=== PATIENT | female | born 1990 | race Caucasian/White ===

== ENCOUNTER 2021-01-02 17:28 | Outpatient (CLI) | payer OTHER, SELFPAY ==
[2021-01-06 11:30] LABS: Vitamin D 1,25 (OH)2 Total 43 pg/mL (18-72); Vitamin D2 1,25 (OH)2 <8 pg/mL; Vitamin D3 1,25 (OH)2 43 pg/mL
== END 2021-01-02 17:29 | disposition home or self-care (01) ==
LOC: CHSLAB 17:30
PROVIDERS: PCP Family Medicine Adolescent Medicine; Visit Provider Nurse Practitioner
DX: E55.9 Vitamin D deficiency, unspecified (principal)
CPT/HCPCS: 36415; 82652

== ENCOUNTER 2021-03-13 14:20 | Outpatient (CLI) | payer OTHER, SELFPAY ==
[2021-03-13 14:31] LABS: Basophils Absolute Auto 0.06 K/mm3 (0.00-0.10); Basophils Percent Auto 0.8 % (0.0-1.0); Eosinophils Absolute Auto 0.12 K/mm3 (0.02-0.50); Eosinophils Percent Auto 1.6 % (1.0-6.0); Hematocrit 41.5 % (35.0-49.0); Hemoglobin 14.6 g/dL (12.0-15.0); Immature Granulocyte Absolute 0.02 K/mm3 (0.00-0.00); Immature Granulocyte Percent A 0.3 % (0.0-0.0); Lymphocytes Absolute Auto 3.23 K/mm3 (1.10-4.50); Lymphocytes Percent Auto 44.2 % (18.0-42.0); Mean Corpuscular HGB Conc 35.2 g/dL (32.0-36.0); Mean Corpuscular Hemoglobin 30.7 pg (27.0-31.0); Mean Corpuscular Volume 87.2 fL (78.0-102.0); Mean Platelet Volume 8.9 fl (9.2-11.8); Monocytes Absolute Auto 0.33 K/mm3 (0.10-0.90); Monocytes Percent Auto 4.5 % (2.0-11.0); Neutrophils Absolute Auto 3.5 K/mm3 (1.7-7.2); Neutrophils Percent Auto 48.6 % (50.0-70.0); Platelet Count Result 292 K/mm3 (150-420); Red Blood Count 4.76 M/mm3 (4.20-5.40); Red Cell Distribution Width 12.2 % (11.6-14.4); White Blood Count 7.3 K/mm3 (4.8-10.8)
[2021-03-13 15:30] LABS: Alanine Aminotransferase 47 U/L (14-59); Albumin Level 4.2 g/dL (3.4-5.0); Alkaline Phosphatase 75 U/L (46-116); Anion Gap 11 mmol/L (8-16); Aspartate Amino Transferase 18 U/L (15-37); Bilirubin,Total 0.5 mg/dL (0.00-1.00); Blood Urea Nitrogen 12 mg/dL (7-18); Calcium 9.1 mg/dL (8.5-10.1); Carbon Dioxide 27 mmol/L (21-32); Chloride 102 mmol/L (98-108); Estimated Glomerular Filt Rate > 60; Glucose 108 mg/dL (70-99); Osmolality Calculated 290 mOsm/kg (285-295); Potassium 3.5 mmol/L (3.5-5.1); Sodium 140 mmol/L (136-145); Thyroid Stimulating Hormone 4.58 uIU/mL (0.36-3.74); Total Protein 7.9 g/dL (6.4-8.2)
== END 2021-03-13 14:21 | disposition home or self-care (01) ==
LOC: CHSLAB 14:22
PROVIDERS: PCP Family Medicine Adolescent Medicine; Visit Provider Physician Assistant
DX: R53.83 Other fatigue (principal)
CPT/HCPCS: 36415; 80053; 84443; 85025

== ENCOUNTER 2021-05-31 12:18 | Outpatient (CLI) | payer OTHER, SELFPAY ==
[2021-05-31 13:42] LABS: Thyroid Stimulating Hormone 1.74 uIU/mL (0.36-3.74)
== END 2021-05-31 12:19 | disposition home or self-care (01) ==
LOC: CHSLAB 12:21
PROVIDERS: PCP Family Medicine Adolescent Medicine; Visit Provider Family Medicine Adolescent Medicine
DX: E03.9 Hypothyroidism, unspecified (principal)
CPT/HCPCS: 36415; 84443

== ENCOUNTER 2022-09-16 09:25 | Outpatient (CLI) | payer OTHER, SELFPAY ==
--- NOTE | 2022-09-27 18:31 | WPDHOMESLEEP ---
Sleep Study - Home Unattended Date of Study: 09/16/22 Ordering Provider: Ritika Cruz PA-C Interpreting Provider: Jami Louis, DO Home Sleep Study Type: Apnea Link Air Height: 1.5 m Weight: 70.76 kg Body Mass Index: 31.5 Neck Circumference (inches): 14 Daisy: 10 Reason for Sleep Study Witnessed apneas, daytime hypersomnia Sleep History The patient is a 32-year-old female with hypothyroidism and anxiety that had a sleep study ordered by primary care for evaluation of sleep apnea. The patient occasionally awakens from sleep short of breath. She denies awakening at night with heartburn, belching or cough. She frequently snores loud enough that others complain. She occasionally has trouble sleeping she has a cold. She occasionally wakes up gasping for air throughout night. She constantly has breathing problems at night observed by herself or others. She occasionally sweats excessively at night. She denies having heart palpitations or irregular heartbeats during night. She occasionally falls asleep during the day but never while driving. She denies sleep paralysis, cataplexy and hypnagogic / hypnopompic hallucinations. She denies feeling afraid of going to sleep she denies having nightmares. She occasionally remembers her dreams. She occasionally has thoughts racing through her mind. She denies feeling sad or depressed. She occasionally has anxiety. She denies having muscular tension. She denies noticing parts of body. She occasionally kicks during the night. She denies having crawling and aching feelings in her legs and denies having leg pain during the night. She occasionally grinds her teeth during sleep but never awakens with morning jaw pain she is occasionally bothered by pain during the day but awakened by pain during night. She occasionally wakes up feeling stiff in morning. He occasionally wakes up with sore or achy muscles. She occasionally wakes up with pain in the neck, spine and other joints. She goes to bed at 9:00 p.m. on both weekdays and weekends. She is able to fall asleep fairly quickly. She wakes up once at most throughout the night to urinate. She is able to fall asleep immediately. She wakes up at 6:10 a.m. on weekdays and at 7:00 a.m. on the weekends. She typically gets 7-8 hours of sleep per night. The amount of time she spends in bed after waking up in the morning his variable. She currently lives with her boyfriend and 4 children. She does not consume any caffeinated beverages within 2 hours of bedtime she does not engage in physical exercise before bedtime. She will occasionally watch television before falling asleep. She will occasionally take naps in the afternoon or the evening but they are not refreshing. She drinks 3 cups of sweet tea per day. She denies tobacco, alcohol and recreational drug use. [facility] Family History Family History Mother Asthma Son Asthma Social History Social History Smoking status: Never smoker Second hand tobacco smoke exposure: No Alcohol intake: current Substance use: never Substance use type: does not use Gender identity (if verbalized by the patient): Female Spiritual care concerns: No Agree to blood products: Yes Medications Home Medications Medication Instructions Recorded Confirmed Type triamcinolone acetonide 0.1 % 1 applic topical BID #15 grams 05/12/22 06/18/22 Rx topical ointment mecobalamin (vitamin B12) 10,000 mcg subcut MONTHLY 06/18/22 06/18/22 History mcg solution for injection azithromycin 250 mg tablet See Rx Instructions PO .COMPLEX #6 08/05/22 Rx tabs alprazolam 0.5 mg tablet 0.5 mg PO TID PRN anxiety #30 tabs 08/13/22 Rx buspirone 10 mg tablet 10 mg PO BID #30 tabs 08/13/22 Rx levothyroxine 50 mcg tablet 50 mcg PO DAILY #30 tabs 08/20/22 Rx Sleep Procedure This
[2022-09-27 18:41] VITALS: BMI 31.5
== END 2022-09-17 10:34 | disposition home or self-care (01) ==
LOC: ANHCSM 09:31
PROVIDERS: PCP Family Medicine Adolescent Medicine; Visit Provider Physician Assistant
DX: G47.33 Obstructive sleep apnea (adult) (pediatric) (principal); E03.9 Hypothyroidism, unspecified; F41.9 Anxiety disorder, unspecified
CPT/HCPCS: 95806

== ENCOUNTER 2023-02-20 08:39 | Outpatient (CLI) | payer OTHER, SELFPAY ==
--- NOTE | 2023-02-20 11:00 | NEURO_ITS ---
Impression: Patient reports a history of difficulty picking up objects with her right hand. # Normal nerve conduction study of the right upper extremity. # Needle/EMG exam not requested. # Clinical correlation recommended. Nerve Conduction Studies Anti Sensory Summary Table Stim Site NR Peak (ms) P-T Amp (?V) Site1 Site2 Delta-P (ms) Dist (cm) Trevor (m/s) Right Median Anti Sensory (2-3nd Digit) Wrist 2.4 74.2 Wrist 2-3nd Digit 2.4 14.0 58 Wrist 2.5 84.9 Wrist 2-3nd Digit 2.4 14.0 58 Right Radial Anti Sensory (Base 1st Digit) Wrist 1.6 78.3 Wrist Base 1st Digit 1.6 0.0 Right Ulnar Anti Sensory (5th Digit) Wrist 2.3 64.1 Wrist 5th Digit 2.3 14.0 61 Motor Summary Table Stim Site NR Onset (ms) O-P Amp (mV) Site1 Site2 Delta-0 (ms) Dist (cm) Trevor (m/s) Right Median Motor (Abd Poll Brev) Wrist 2.3 6.4 Elbow Wrist 3.3 19.0 58 Elbow 5.6 5.7 Right Ulnar Motor (Abd Dig Minimi) Wrist 2.4 8.5 A Elbow Wrist 3.9 24.0 62 A Elbow 6.3 7.7 B Elbow Wrist 2.5 15.0 60 B Elbow 4.9 7.7 F Wave Studies NR F-Lat (ms) L-R F-Lat (ms) Right Median (Mrkrs) (Abd Poll Brev) 24.56 Right Ulnar (Mrkrs) (Abd Dig Min) 23.73 MTDD
== END 2023-02-20 08:40 | disposition home or self-care (01) ==
LOC: ANHNEURO 08:39
PROVIDERS: PCP Family Medicine Adolescent Medicine; Visit Provider Family Medicine Adolescent Medicine
DX: R20.0 Anesthesia of skin (principal)
CPT/HCPCS: 95909

== ENCOUNTER 2023-06-10 09:56 | Outpatient (CLI) | payer OTHER, SELFPAY ==
--- NOTE | ~2023-06-10 | XR_ITS ---
Clinical Indication: Dyspnea PA and lateral views of the chest: Comparison: None Findings: The lungs are clear, without evidence of focal consolidation or pleural effusion. Cardiome diastinal silhouette is within normal limits. Bones and soft tissues are unremarkable. Impression: Normal chest. Reviewed, dictated and finalized at location . Impression: Normal chest.
== END 2023-06-10 09:57 | disposition home or self-care (01) ==
LOC: ANHIMG 09:58
PROVIDERS: PCP Family Medicine Adolescent Medicine; Visit Provider Family Medicine Adolescent Medicine
DX: R06.00 Dyspnea, unspecified (principal)
CPT/HCPCS: 71046

== ENCOUNTER 2023-08-03 12:27 | Outpatient (CLI) | payer OTHER, SELFPAY ==
--- NOTE | 2023-08-03 14:06 | WPDPFTINT ---
PFT Procedure Performed PFT Procedure Performed Spirometry w/o Bronchodil PFT Interpretation Spirometry showed normal expiratory flow rates and a normal FEV1 to FVC ratio of 84%. No post bronchodilator study carried out. The flow-volume loop is unremarkable. Impression: Spirometry within normal range.
== END 2023-08-03 12:28 | disposition home or self-care (01) ==
LOC: ANHPFT 12:29
PROVIDERS: PCP Family Medicine Adolescent Medicine; Visit Provider Family Medicine Adolescent Medicine
DX: R06.00 Dyspnea, unspecified (principal)
CPT/HCPCS: 94375

== ENCOUNTER 2023-08-14 12:58 | Outpatient (CLI) | payer OTHER, SELFPAY ==
--- NOTE | ~2023-08-14 | MMUS_ITS ---
EXAMINATION: MM diagnostic grace BI w moshe, US breast LT limited HISTORY: Left breast pain TECHNIQUE: Craniocaudal, mediolateral, and mediolateral oblique 3-D tomosynthesis images of the breas ts were performed and synthetic 2-D images were generated. CAD analysis was submitted and interpreted . High resolution limited left breast ultrasound was performed. COMPARISON: None, baseline BREAST PARENCHYMAL COMPOSITION: The breasts are heterogeneously dense, which may obscure small masses . FINDINGS: MAMMOGRAPHIC FINDINGS: No suspicious mass, calcification, or architectural distortion are identified in either breast to sug gest malignancy. No mammographic correlate is identified for the patient's reported subareolar left b reast pain. ULTRASOUND: There is no evidence of focal abnormal solid or cystic mass in the vicinity of the patient's subareol ar left breast pain. There is a 7 mm x 4 mm oval, circumscribed, parallel, hypoechoic mass with no po sterior features or internal vascularity at the 5:00 location, 6 cm from the nipple in the left breas t. IMPRESSION: 1. No specific mammographic or sonographic correlate is identified for the patient's reported left br east pain. Further evaluation at this time should be based on clinical assessment. Continued follow-u p physical examination is recommended. 2. Recommend 6 month follow-up targeted left breast ultrasound for probably benign sonographically de tected mass at the 5:00 location, 6 cm from the nipple. BI-RADS category 3, probably benign findings. Reviewed, dictated and finalized at location A. ER AUTOMATIC IMPRESSION: 1. No specific mammographic or sonographic correlate is identified for the barbara ent's reported left breast pain. Further evaluation at this time should be base d on clinical assessment. Continued follow-up physical examination is recommend ed. 2. Recommend 6 month follow-up targeted left breast ultrasound for probably tasia ign sonographically detected mass at the 5:00 location, 6 cm from the nipple. BI-RADS category 3, probably benign findings.
== END 2023-08-14 12:59 | disposition home or self-care (01) ==
LOC: ANHIMG 13:00
PROVIDERS: PCP Family Medicine Adolescent Medicine; Visit Provider Nurse Practitioner
DX: N64.4 Mastodynia (principal)
CPT/HCPCS: 76642; 77062; 77066; G0279

== ENCOUNTER 2024-01-12 09:58 | Outpatient (CLI) | payer OTHER, SELFPAY ==
--- NOTE | ~2024-01-12 | US_ITS ---
US breast LT limited 01/12/2024 10:54 Indication: Follow-up left breast asymmetry Procedure: High-resolution Limited ultrasound of the left breast Comparison: Ultrasound dated 08/14/2023 Findings: At 5:00, 6 cm from the nipple there is an oval hypoechoic mass measuring approximately 5 mm with echogenic center, likely benign lymph node or complicated cyst. This is less apparent than on p rior examination, likely benign. Impression: 1: Probable benign left breast mass at 5:00, 6 cm from the nipple measuring 5 mm. BI-RADS CATEGORY 3-PROBABLY BENIGN FINDING RECOMMENDATION: Six-month follow-up bilateral mammogram and Limited left breast ultrasound recommende d. Reviewed, dictated and finalized at location A. Impression: 1: Probable benign left breast mass at 5:00, 6 cm from the nipple measuring 5 m m. BI-RADS CATEGORY 3-PROBABLY BENIGN FINDING RECOMMENDATION: Six-month follow-up bilateral mammogram and Limited left breast ultrasound recommended.
== END 2024-01-12 09:59 | disposition home or self-care (01) ==
PROVIDERS: PCP Family Medicine Adolescent Medicine; Visit Provider Obstetrics & Gynecology Gynecology
DX: N63.20 Unspecified lump in the left breast, unspecified quadrant (principal)
CPT/HCPCS: 76642

== ENCOUNTER 2024-04-25 14:30 | Outpatient (CLI) | payer OTHER, SELFPAY ==
--- NOTE | 2024-04-25 14:37 | ECHO_ITS ---
Patient Info Name: Shae Mock Age: 34 years : 1990 Gender: Female Ht: 59 in Wt: 149 lbs BSA: 1.70 m2 HR: 79 bpm BP: 124 / 92 mmHg Heart Rhythm: Sinus Rhythm Technical Quality: Fair Exam Date: 04/25/2024 2:44 PM Exam Location: Echo Lab Patient Status: Outpatient Admit Date: 04/25/2024 Staff Ordering Physician: Cally Oliva APRN Medication Specialist: Marilee Crump RDCS Attending Provider: Cally Oliva APRN Referring Physician: Pj DURAN; Exam Type: CA echo doppler color flow Study Info Indications R07.9 - Chest pain, unspecified Complete two-dimensional, color flow and Doppler transthoracic echocardiogram is performed. Summary 1. Complete two-dimensional, color flow and Doppler transthoracic echocardiogram is performed. 2. Left ventricular chamber dimension is normal. 3. Left ventricular systolic function is normal, estimated at 60-65%. 4. The left ventricular diastolic function is normal. 5. E/e' 6 is not elevated. Left Ventricle E/e' 6 is not elevated. Left ventricular chamber dimension is normal. Left ventricular systolic function is normal, estimated at 60-65%. The left ventricular diastolic function is normal. Right Ventricle Right ventricular systolic function is normal and with normal TAPSE 1.9 cm. Right ventricular chamber dimension is normal. Left Atria Left atrial chamber dimension is normal. Right Atria Right atrial chamber dimension is normal. Aortic Valve The aortic valve is trileaflet. There is no aortic valve stenosis. There is no aortic valve regurgitation. Pulmonic Valve There is no pulmonic regurgitation. Mitral Valve There is no mitral valve stenosis. There is no mitral valve regurgitation. Tricuspid Valve There is no tricuspid valve regurgitation. Pericardium/Pleural There is no pericardial effusion. Inferior Vena Cava Normal inferior vena cava with >50% collapse upon inspiration consistent with normal right atrial pressure, 5 mmHg. Aorta The aortic root size at the sinus of Valsalva is normal. Left Ventricular Outflow Tract Name Value Normal LVOT 2D LVOT Diameter 1.9 cm LVOT Doppler LVOT Peak Gradient 4 mmHg LVOT Mean Gradient 2 mmHg LVOT VTI 16 cm LVOT VTI/AV VTI Ratio 0.9 LVOT Stroke Volume 45 ml LVOT CO 3.2 l/min LVOT CI 1.9 l/min/m2 Pulmonic Valve Name Value Normal RVOT Doppler RVOT Peak Gradient 1 mmHg PV Doppler PV Peak Gradient 3 mmHg Mitral Valve Name Value Normal
== END 2024-04-25 14:31 | disposition home or self-care (01) ==
LOC: ANHCARD 14:31
PROVIDERS: PCP Family Medicine Adolescent Medicine; Visit Provider Nurse Practitioner Family
DX: R07.9 Chest pain, unspecified (principal)
CPT/HCPCS: 93306

== ENCOUNTER 2024-05-16 08:16 | Outpatient (CLI) | payer OTHER, SELFPAY ==
--- NOTE | 2024-05-16 14:24 | WPDPFTINT ---
PFT Procedure Performed PFT Procedure Performed Spirometry with Pre/Post Bronchodilator Plethysmography (Lung Vol) Diffusing Cap (DLCO) Flow Vol Loop PFT Interpretation This is a pulmonary function test with pre and post-bronchodilator spirometry, plethysmography and diffusing capacity. The test was performed and results interpreted in accordance with the 2019 and 2005 ATS/ERS Task Force guidelines respectively using the Global Lung Function Initiative-2012 reference equations. Patient demonstrated good effort and cooperation. Reproducibility criteria were met. The quality of the pre bronchodilator spirometry maneuver was Grade B and post bronchodilator spirometry maneuver was Grade B. Findings: Spirometry: The contour the expiratory flow tracing demonstrates a mid expiratory pause or knee pattern in 3 of 3 pre bronchodilator maneuvers and in 4 of 4 post bronchodilator maneuvers. The contour the inspiratory flow tracing is normal. The pre bronchodilator FVC is 3.10 L, 99% predicted. The pre bronchodilator FEV1 is 2.60 L, 99% predicted. The pre bronchodilator FEV1: FVC ratio is 84%. The post bronchodilator FVC is 3.17 L, representing a 2% increase. The post bronchodilator FEV1 is 2.68 L, representing a 3% increase. The post bronchodilator FEV1: FVC ratio is 84%. Plethysmography: The total lung capacity is 4.43 L, 103% predicted. The functional residual capacity is 2.23 L, 96% predicted. The residual volume is 1.29 L, 102% predicted. Diffusing capacity: The diffusing capacity unadjusted for hemoglobin and carboxyhemoglobin is 22.0, 99% predicted. The diffusing capacity adjusted for alveolar volume is 5.80, 115% predicted. In comparison to previous pre bronchodilator spirometry from 08/03/2023 in which only pre bronchodilator spirometry was performed, the mid expiratory pause or knee pattern was present. The pre bronchodilator FVC is unchanged from 2.91 L to 3.10 L. The pre bronchodilator FEV1 is unchanged from 2.44 L to 2.60 L. Impression: There is a reproducible knee pattern of the expiratory flow tracing which can be a normal variant or pathologic and has been attributed to a choke point section of the bronchial tree. The normal variant is more common in younger female patients, decreases with age and is more pronounced in the post bronchodilator efforts. The pattern has also been described with kyphosis, kyphoscoliosis, central obstructing mass, and post lung transplantation. Otherwise, the spirometry is normal without evidence of an obstructive abnormality. There is no significant improvement after inhaling a single dose of albuterol. The lung volumes are normal. The diffusing capacity is normal. In comparison to previous pulmonary function testing on 08/03/2023 in which only pre bronchodilator spirometry was performed, the pre bronchodilator knee pattern was present. There has been no significant change in the pre bronchodilator FVC or FEV1. Clinical correlation is recommended.
== END 2024-05-16 08:17 | disposition home or self-care (01) ==
LOC: ANHPFT 08:17
PROVIDERS: PCP Family Medicine Adolescent Medicine; Visit Provider Nurse Practitioner Family
DX: R07.9 Chest pain, unspecified (principal); R06.00 Dyspnea, unspecified
CPT/HCPCS: 94060; 94726; 94729

== ENCOUNTER 2024-06-27 08:37 | Outpatient (CLI) | payer OTHER, SELFPAY ==
--- NOTE | 2024-06-27 08:43 | EST_ITS ---
Patient Info Name: Shae Mock Age: 34 years : 1990 Gender: Female Ht: 59 in Wt: 138 lbs BSA: 1.64 m2 HR: 71 bpm BP: 132 / 87 mmHg Exam Date: 06/27/2024 9:37 AM Exam Location: Echo Lab Patient Status: Outpatient Admit Date: 06/27/2024 Staff Ordering Physician: Cally Oliva APRN Attending Provider: Cally Oliva APRN Exercise Technologist: Marilee Crump [facility] Exercise Physician: Roldan Galvan DO Exam Type: CA stress test treadmill Study Info A treadmill exercise stress test was performed. Summary 1. 1. Negative Nadeem exercise stress test for ischemic ST changes by ECG criteria. 2. 2. Good functional capacity, achieving 11 METs of workload. 3. 3. Appropriate HR response to exercise. 4. 4. Appropriate HR recovery at 1 minute post exercise. 5. 5. No imaging with stress testing. 6. 6. Patient informed of the above results. Protocol: Nadeem Stress ECG Details Stage: REST Duration (min): 1 min : 16 sec Speed (mph): 0.0 Grade (%): 0 HR (bpm): 70 SBP (mmHg): 132 DBP (mmHg): 87 METS: --- Stage: REST Duration (min): 3 min : 8 sec Speed (mph): 0.0 Grade (%): 0 HR (bpm): 85 SBP (mmHg): 132 DBP (mmHg): 87 METS: --- Stage: STAGE 1 Duration (min): 1 min : 0 sec Speed (mph): 1.7 Grade (%): 10 HR (bpm): 95 SBP (mmHg): 132 DBP (mmHg): 87 METS: --- Stage: STAGE 1 Duration (min): 2 min : 0 sec Speed (mph): 1.7 Grade (%): 10 HR (bpm): 106 SBP (mmHg): 132 DBP (mmHg): 87 METS: --- Stage: STAGE 1 Duration (min): 3 min : 0 sec Speed (mph): 1.7 Grade (%): 10 HR (bpm): 108 SBP (mmHg): 132 DBP (mmHg): 87 METS: --- Stage: STAGE 2 Duration (min): 1 min : 0 sec Speed (mph): 2.5 Grade (%): 12 HR (bpm): 117 SBP (mmHg): 132 DBP (mmHg): 87 METS: --- Stage: STAGE 2 Duration (min): 2 min : 0 sec Speed (mph): 2.5 Grade (%): 12 HR (bpm): 127 SBP (mmHg): 132 DBP (mmHg): 87 METS: --- Stage: STAGE 2 Duration (min): 3 min : 0 sec Speed (mph): 2.5 Grade (%): 12 HR (bpm): 138 SBP (mmHg): 146 DBP (mmHg): 65 METS: --- Stage: STAGE 3 Duration (min): 1 min : 0 sec Speed (mph): 3.4 Grade (%): 14 HR (bpm): 143 SBP (mmHg): 146 DBP (mmHg): 65 METS: --- Stage: STAGE 3 Duration (min): 2 min : 0 sec Speed (mph): 3.4 Grade (%): 14 HR (bpm): 154 SBP (mmHg): 146 DBP (mmHg): 65 METS: --- Stage: STAGE 3 Duration (min): 3 min : 0 sec Speed (mph): 3.4 Grade (%): 14 HR (bpm): 160 SBP (mmHg): 164 DBP (mmHg): 66 METS: --- Stage: STAGE 4 Duration (min): 0 min : 30 sec Speed (mph): 4.2 Grade (%): 16 HR (bpm): 165 SBP (mmHg): 164 DBP (mmHg): 66 METS: --- Stage: RECOVERY Duration (min): 0 min : 29 sec Speed (mph): 0.0 Grade (%): 0 HR (bpm): 167 SBP (mmHg): 164 DBP (mmHg): 66 METS: --- Stage: R
== END 2024-06-27 08:38 | disposition home or self-care (01) ==
LOC: ANHLAB 08:37
PROVIDERS: PCP Family Medicine Adolescent Medicine; Visit Provider Nurse Practitioner Family
DX: R07.9 Chest pain, unspecified (principal); R06.00 Dyspnea, unspecified
CPT/HCPCS: 93017

== ENCOUNTER 2024-08-15 12:10 | Outpatient (CLI) | payer OTHER, SELFPAY ==
--- NOTE | ~2024-08-15 | MMUS_ITS ---
EXAMINATION: MM diagnostic grace BI w moshe, US breast LT limited HISTORY: Follow-up left breast abnormality TECHNIQUE: Additional 3-D tomosynthesis images of the breasts were performed and synthetic 2-D images were generated. CAD analysis was submitted and interpreted. High resolution Limited left breast ultr asound was performed. COMPARISON: Comparison to multiple prior studies sequentially, with oldest reviewed study dated 12/2022. BREAST PARENCHYMAL COMPOSITION: Dense: The breasts are extremely dense, which lowers the sensitivity of mammography. FINDINGS: MAMMOGRAPHIC FINDINGS: There are no suspicious masses, calcifications or architectural distortion in either breast to sugges t malignancy. ULTRASOUND: Limited left breast ultrasound: Abnormality seen in the left breast at 5:00, 6 cm from the nipple was not appreciated on the current study. At 4:00, 4 cm from the nipple there is an 8 mm cyst. No suspic ious masses to suggest malignancy. IMPRESSION: 1. No evidence for malignancy in either breast. 2. Routine yearly screening mammogram and regular clinical breast examination are recommended. BI-RADS Category 2: Benign finding(s). Reviewed, dictated and finalized at location B. TIONSHIP CONSULTANT IMPRESSION: 1. No evidence for malignancy in either breast. 2. Routine yearly screening mammogram and regular clinical breast examination a re recommended. BI-RADS Category 2: Benign finding(s).
== END 2024-08-15 12:11 | disposition home or self-care (01) ==
LOC: ANHIMG 12:11
PROVIDERS: PCP Family Medicine Adolescent Medicine; Visit Provider Obstetrics & Gynecology Gynecology
DX: Z12.31 Encounter for screening mammogram for malignant neoplasm of breast (principal)
CPT/HCPCS: 76642; 77062; 77066; G0279

== ENCOUNTER → 2025-05-29 14:26 | Outpatient (CLI) | payer OTHER, SELFPAY ==
--- NOTE | ~2025-05-29 | XR_ITS ---
XR knee LT min 4V 05/29/2025 15:51 Indication: Left knee pain Procedure: 4 views left knee Comparison: No prior studies for comparison. Findings: No fracture, subluxation or dislocation. No significant joint effusion. No foreign bodies. Impression: 1: No significant bone or joint abnormality. Reviewed, dictated and finalized at location A. Impression: 1: No significant bone or joint abnormality.
== END ==
LOC: EXPCRAD 14:27
PROVIDERS: PCP Family Medicine; Visit Provider Family Medicine
DX: M25.562 Pain in left knee (principal)
CPT/HCPCS: 73564